=== PATIENT | male | born 1990 | race Caucasian/White ===

== ENCOUNTER 2018-08-24 00:11 | Inpatient (IN) | payer MEDICARE, MEDICAID | END 2018-08-27 21:00 | disposition left against medical advice (07) | LOC: SUR 3N 08-25 01:48 → ER 00:11 → SUR 3N 10:11 | DX: L03.113 Cellulitis of right upper limb (principal); R65.20 Severe sepsis without septic shock; N17.9 Acute kidney failure, unspecified; D62 Acute posthemorrhagic anemia; F31.9 Bipolar disorder, unspecified; F15.10 Other stimulant abuse, uncomplicated ==